=== PATIENT | female | born 1935 | race Hispanic/Latino ===

== ENCOUNTER 2018-05-03 12:11 | Inpatient (IN) | payer MEDICARE ==
--- NOTE | 2018-05-03 12:56 | ED PDOC ---
Arrival/HPI - General Chief Complaint: Weakness/Neurological Deficit Time Seen by Provider: 05/03/18 12:28 Historian: Patient - History of Present Illness Narrative History of Present Illness (Text): 05/03/18 12:49 A 82 year old female, whose past medical history includes recent knee procedure one week ago, presents to the emergency department complaining of black stool starting this morning and "feeling very weak". Patient reports she had surgery to leg last week, and since then has been eating a little and having small bowel movements every day. Patient awoke feeling very weak and had dark bowel movement, which she did not have previously. Patient notes also experiencing dizziness and lightheadedness that worsen when standing or ambulating. Patient ambulates with her walker. She denies any abdominal pain or any other complaints at this time. Also, patient mentions she has no history of internal bleeding. 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 Fish, last visit being 4-6 months ago, for evaluation since having colonoscopy performed years ago, and latest evaluation showed no acute findings. PMD: Dr. Loaiza 05/03/18 14:32 Time/Duration: Prior to Arrival Symptom Onset: Gradual Past Medical History - Provider Review Nursing Documentation Reviewed: Yes - Infectious Disease Hx of Infectious Diseases: None - Tetanus Immunization Tetanus Immunization: Unknown - Cardiac Hx Pacemaker: No - Neurological Hx Paralysis: No - Hematological/Oncological Hx Blood Transfusions: No Hx Blood Transfusion Reaction: No - Musculoskeletal/Rheumatological Hx Musculoskeletal Disorders: Yes - Psychiatric Hx Depression: No Hx Emotional Abuse: No Hx Physical Abuse: No Hx Substance Use: No - Surgical History Hx Orthopedic Surgery: Yes (right knee sx) - Anesthesia Hx Anesthesia Reactions: No Hx Malignant Hyperthermia: No - Suicidal Assessment Feels Threatened In Home Enviroment: No Family/Social History - Physician Review Nursing Documentation Reviewed: Yes Family/Social History: No Known Family HX Smoking Status: Former Smoker Hx Alcohol Use: No Hx Substance Use: No Hx Substance Use Treatment: No Allergies/Home Meds Allergies/Adverse Reactions: Allergies iodine Allergy (Verified 05/03/18 12:38) RASH shellfish derived Allergy (Verified 05/03/18 12:38) RASH Home Medications: Home Meds Medication Instructions Recorded Confirmed Aspirin [Aspirin EC] 1 tab PO DAILY 05/03/18 05/03/18 Review of Systems - Review of Systems Constitutional: Fatigue. absent: Fevers Eyes: absent: Vision Changes Respiratory: absent: SOB Cardiovascular: absent: Chest Pain, JIMÉNEZ Gastrointestinal: Stool Changes (black stool). absent: Abdominal Pain Genitourinary Female: absent: Dysuria Musculoskeletal: Other (right lower extremity swelling). absent: Back Pain Skin: absent: Rash Neurological: Dizziness (and lightheadedness that worsens with standing or when ambulating with her walker.). absent: Focal Weakness Hemo/Lymphatic: absent: Easy Bleeding Psychiatric: absent: Depression Physical Exam - Physical Exam Narrative Physical Exam (Text): Head: Atraumatic. Normocephalic. Eyes: PERRL. EOMI. Conjunctivae are pale. ENT: Mucous membranes are moist and intact. Oropharynx is clear and symmetric. Neck: Supple. Full ROM. No JVD. No lymphadenopathy. Cardiovascular: Regular rate. Regular rhythm. Systolic murmur. Distal pulses intact. Pulmonary/Chest: No evidence of respiratory distress. Clear to auscultation bilaterally. No wheezing, rales or rhonchi. Abdominal: Soft and non-distended. There is no tenderness. No rebound, guarding, or rigidity. No organomegaly. Good bowel sounds. Back: No CVA tenderness. Extremities: Dressing noted to right lower extremity, no streaking pus or drainage. Edema noted to right lower extremity. Able to range at hip, knee and ankle. Ecchmosid noted to right leg extends proximally.. Skin: Skin is pale and diaphoretic. Neurological: Alert, awake, and oriented. Motor and sensory exam intact. Psychiatric: Good eye contact. Normal interaction, affect, and behavior. Rectal: Dark stool, positive guaiac. 05/03/18 16:43 Vital Signs Reviewed: Yes Vital Signs Temp Pulse Resp BP Pulse Ox 05/03/18 16:11 98 F 84 18 106/49 L 05/03/18 15:55 98.3 F 84 18 111/83 05/03/18 15:22 97 H 18 111/81 100 05/03/18 13:24 78 18 119/61 99 05/03/18 12:42 98.2 F 89 18 114/69 100 Temperature: Afebrile Blood Pressure: Normal Pulse: Regular Respiratory Rate: Normal Appearance: Positive for: Well-Appearing, Non-Toxic, Comfortable Pain Distress: None Mental Status: Positive for: Alert and Oriented X 3 Medical Decision Making ED Course and Treatment: 05/03/18 12:53 Impression: 82 year old female with black stool, dizziness, and lightheadedness. Differential Diagnosis included but are not limited to: GI Bleed vs. Anemia. Plan: -- IV Fluids -- Pepcid -- Reassess and disposition Progress Notes: 05/03/18 12:55 Patient is not hypotensive/tachycardic. However symptom of black stool are concerning for possible GI bleeding. Patient will be administered IV Fluids and Pepcid. Rectal exam reveals melena and is guaiac positive. Patient denies acute leg pain, but has had prior recent knee surgery and ecchymosis noted to right lower extremity with edema. Pulses intact. Minimal leg discomfort. NO sign of compartment syndrome on exam. She denies hematemesis. She has been monitored and is not hypotensive or tachycardic. Hgb 6.6. This was compared to last available hgb. Given indication of acute gi bleeding as patient described symptom onset this am and dark stools this am, iv protonix , gi consult obtained. Blood transfusion ordered. I have reviewed indications and risks/benefits of transfusion, consent has been obtained. With serial exams she remains comfortable on stretcher. ICU consultation obtained, as she is cv stable at this time, patient currently cleared by ICU for telemetry admission. Case d/w Dr. Valle, accepts admission to his service, will consult Dr. Rashid for orthopedic evaluation and follow-up of right leg. Patient updated with treatment plan. She has no abdomoinal pain or rever. 05/03/18 17:03 - Lab Interpretations Lab Results: 05/03/18 12:30 05/03/18 12:30 Lab Results 05/03/18 13:22: Urine Color Yellow, Urine Appearance Clear, Urine pH 6.0, Ur Specific [place] 1.015, Urine Protein Negative, Urine Glucose (UA) Negative, Urine Ketones Negative, Urine Blood Negative, Urine Nitrate Negative, Urine Bilirubin Negative, Urine Urobilinogen 0.2, Ur Leukocyte Esterase Small H, Urine RBC Negative, Urine WBC 2 - 5, Ur Epithelial Cells 1 - 3, Urine Bacteria Mod 05/03/18 13:07: POC Glucose (mg/dL) 105 05/03/18 12:30: Blood Type O POSITIVE, Antibody Screen Negative, Crossmatch See Detail, BBK History Checked No verified bt 05/03/18 12:30: Sodium 136, Potassium 3.6, Chloride 103, Carbon Dioxide 24, Anion Gap 13, BUN 52 H, Creatinine 1.0, Est GFR ( Amer) > 60, Est GFR ( Non-Af Amer) 53, Random Glucose 103, Calcium 9.2, Total Bilirubin 0.9, AST 36, ALT 31, Alkaline Phosphatase 46, Lactate Dehydrogenase 540, Total Creatine Kinase 55, Troponin I 0.04 D, Total Protein 6.3, Albumin 3.4, Globulin 2.8, Albumin/Globulin Ratio 1.2 05/03/18 12:30: WBC 13.9 H D, RBC 2.18 L, Hgb 6.6 L*, Hct 19.6 L*, MCV 89.9, MCH 30.3, MCHC 33.7, RDW 14.8 H, Plt Count 331, MPV 8.9, Gran % 73.9 H, Lymph % (Auto) 18.2 L, [place] % (Auto) 7.2 H, Eos % (Auto) 0.4 L, Baso % (Auto) 0.3, Gran # 10.29 H, Lymph # (Auto) 2.5, [place] # (Auto) 1.0 H, Eos # (Auto) 0.1, Baso # ( Auto) 0.04 - RAD Interpretation Radiology Orders: 05/03/18 12:57 CHEST PORTABLE [RAD] Stat Health Educator: Radiologist - EKG Interpretation EKG Interpretation (Text): EKG at 1233 normal sinus rhythm rate of [address] abnormality Interpreted by ED Physician: Yes Type: 12 lead EKG - Medication Orders Current Medication Orders: Discontinued Medications Sodium Chloride (Sodium Chloride 0.9%) 1,000 mls @ 1,000 mls/hr IV .Q1H STA Stop: 05/03/18 13:57 Last Admin: 05/03/18 13:03 Dose: 1,000 mls/hr eMAR Start Stop Document 05/03/18 13:03 GMD (Rec: 05/03/18 13:03 [facility] [id number] Intravenous Solution Start Date 05/03/18 Start Time 13:03 End Date 05/03/18 End time 14:03 Total Infusion Time 60 Pantoprazole Sodium (Protonix Inj) 40 mg IVP ONCE STA Stop: 05/03/18 12:59 Last Admin: 05/03/18 13:03 Dose: 40 mg IVP Administration Document 05/03/18 13:03 GMD (Rec: 05/03/18 13:03 GMD [facility] [id number]) Charges for Administration # of IVP Administrations 1 - Scribe Statement The provider has reviewed the documentation as recorded by the Rejiibeh Mike Provider Scribe Attestation: All medical record entries made by the Scribe were at my direction and personally dictated by me. I have reviewed the chart and agree that the record accurately reflects my personal performance of the history, physical exam, medical decision making, and the department course for this patient. I have also personally directed, reviewed, and agree with the discharge instructions and disposition. Disposition/Present on Arrival - Present on Arrival Any Indicators Present on Arrival: No History of DVT/PE: No History of Uncontrolled Diabetes: No Urinary Catheter: No History of Decub. Ulcer: No History Surgical Site Infection Following: None - Disposition Have Diagnosis and Disposition been Completed?: Yes Diagnosis: GI bleeding, Anemia, Leg edema, right Disposition: HOSPITALIZED Disposition Time: 14:30 Patient Plan: Admission, Telemetry Patient Problems: Current Active Problems Problem Status Onset Anemia Acute GI bleeding Acute Leg edema, right Acute Condition: SERIOUS
[2018-05-03] MEDS ORDERED: Sodium Chloride 0.9% 1,000 ML IV STA (12:58)
[2018-05-03 13:18] LABS: BASO # 0.04 K/mm3 (0.0-2.0); BASO % 0.3 % (0.0-3.0); EOS # 0.1 (0.0-0.7); EOS % 0.4 % (1.5-5.0); GRAN # 10.29 (1.4-6.5); GRAN % 73.9 % (50.0-68.0); LYMPH # 2.5 (1.2-3.4); LYMPH % 18.2 % (22.0-35.0); MEAN CELL VOLUME 89.9 fl (80.0-105.0); MEAN CORPUSCULAR HEMOGLOBIN 30.3 pg (25.0-35.0); MEAN CORPUSCULAR HGB CONC 33.7 g/dl (31.0-37.0); MEAN PLATELET VOLUME 8.9 fl (7.0-11.0); MONO % 7.2 % (1.0-6.0); RBC 2.18 10^6/uL (3.5-6.1); RED CELL DISTRIBUTION WIDTH 14.8 % (11.5-14.5); WHITE BLOOD COUNT 13.9 10^3/ul (4.5-11.0)
[2018-05-03 13:19] LABS: ALB/GLOB RATIO 1.2 (1.1-1.8); ALBUMIN 3.4 g/dL (3.0-4.8); ALT/SGPT 31 U/L (7-56); AST/SGOT 36 U/L (14-36); BLOOD UREA NITROGEN 52 mg/dL (7-21); CALCIUM 9.2 mg/dL (8.4-10.5); GFR AFRICAN-AMERICAN > 60; GFR NON-AFRICAN AMERICAN 53
[2018-05-03 13:20] LABS: HEMOGLOBIN 6.6 g/dL (12.0-16.0)
[2018-05-03 13:31] LABS: URINE BILIRUBIN NEGATIVE (NEGATIVE); URINE BLOOD NEGATIVE (NEGATIVE); URINE GLUCOSE (UA) NEGATIVE (NEGATIVE); URINE LEUKOCYTE ESTERASE SMALL Leu/uL (NEGATIVE); URINE PROTEIN NEGATIVE mg/dL (<30 mg/dL); URINE UROBILINOGEN 0.2 E.U./dL (<1 E.U./dL)
[2018-05-03 13:31] LABS: TROPONIN I 0.04 ng/mL
[2018-05-03 13:34] LABS: URINE APPEARANCE CLEAR (CLEAR); URINE COLOR YELLOW (YELLOW)
[2018-05-03 13:46] LABS: URINE RBC NEGATIVE /hpf (0-2)
[2018-05-03 13:47] LABS: URINE BACTERIA MOD (NEG)
--- NOTE | 2018-05-03 14:01 | RAD ---
Date of service: 05/03/2018 HISTORY: weakness COMPARISON: 06/19/2014. FINDINGS: LUNGS: The lungs are well inflated and clear. There is calcified subcentimeter nodule in the right lung base. PLEURA: No significant pleural effusion identified, no pneumothorax apparent. CARDIOVASCULAR: Normal. OSSEOUS STRUCTURES: No significant abnormalities. VISUALIZED UPPER ABDOMEN: Normal. OTHER FINDINGS: None. IMPRESSION: No active pulmonary disease.
--- NOTE | 2018-05-03 15:13 | CT ---
Date of service: 05/03/2018 PROCEDURE: CT of the right hip without contrast HISTORY: eval for hematoma of hip/thigh/knee COMPARISON: TECHNIQUE: Radiation dose: Total exam DLP = 363 mGy-cm. This CT exam was performed using one or more of the following dose reduction techniques: Automated exposure control, adjustment of the mA and/or kV according to patient size, and/or use of iterative reconstruction technique. The study extended from the hip through the knee FINDINGS: There is no evidence of a hematoma. There is subcutaneous edema posteriorly around the knee. There has been recent surgery. Surgical clips are seen anteriorly as well as a small effusion and subcutaneous fluid collection. There is a partial knee replacement on the lateral side. IMPRESSION: No evidence of hematoma
--- NOTE | 2018-05-03 15:21 | CARD ---
APPROVED REPORT Date of service: 05/03/2018 EKG Measurement Heart [id number] <Conclusion> Normal sinus rhythm ST abnormality, possible digitalis effect Abnormal ECG
[2018-05-03 16:03] LABS: INR 1.15; PARTIAL THROMBOPLASTIN TIME 24.9 Seconds (25.1-36.5); PROTHROMBIN TIME 13.1 SECONDS (9.4-12.5)
--- NOTE | 2018-05-03 16:08 | CP.PCM.CON ---
History of Present Illness - History of Present Illness History of Present Illness: 82f that we are asked to see for critical care evaluation of acute blood anemia. Irma is overall very healthy on no home meds up until last week when she had right knee surgery at [facility]. It was an ambulatory proecure. Since then she decided to take ASA 325mg PO daily. Her recovery was concerning for bruising and leg swelling however her f/u appt isnt until next week. She overall felt well until this AM when she had a black stool and shortly after felt weak. This alerted her to come to the ED. Of note, she had a colonscopy about 8 years ago (GI Dr. Fish) which was normal. In the Ed she was normotensive with a BP of 119/61 HR 80. Labs remarkable for HB 6.6 Review of Systems - Constitutional Constitutional: Fatigue, Weakness. absent: Chills, Fever, Headache - EENT Eyes: absent: Blurred Vision, Change in Vision Ears: absent: As Per HPI, Decreased Hearing, Ear Discharge, Ear Pain, Tinnitus, Abnormal Hearing, Disequilibrium, Dizziness, Other Nose/Mouth/Throat: absent: As Per HPI, Epistaxis, Nasal Congestion, Nasal Discharge, Nasal Obstruction, Nasal Trauma, Nose Pain, Post Nasal Drip, Sinus Pain, Sinus Pressure, Bleeding Gums, Change in Voice, Dental Pain, Dry Mouth, Dysphagia, Halitosis, Hoarsness, Lip Swelling, Mouth Lesions, Mouth Pain, Odynophagia, Sore Throat, Throat Swelling, Tongue Swelling, Facial Pain, Neck Pain, Neck Mass, Other - Cardiovascular Cardiovascular: absent: As Per HPI, Acrocyanosis, Chest Pain, Chest Pain at Rest , Chest Pain with Activity, Claudication, Diaphoresis, Dyspnea, Dyspnea on Exertion, Edema, Irregular Heart Rhythm, Pain Radiating to Arm/Neck/Jaw, Leg Edema, Leg Ulcers, Lightheadedness, Orthopnea, Palpitations, Paroxysmal Nocturnal Dyspnea, Pedal Edema, Radiating Pain, Rapid Heart Rate, Slow Heart Rate, Syncope, Other - Respiratory Respiratory: absent: As Per HPI, Cough, Dyspnea, Hemoptysis, Dyspnea on Exertion , Wheezing, Snoring, Stridor, Pain on Inspiration, Chest Congestion, Excessive Mucous Production, Change in Mucous Color, Pain with Coughing, Other - Gastrointestinal Gastrointestinal: Change in Stool Character, Melena. absent: Coffee Ground Emesis, Constipation, Hematemesis, Loose Stools, Nausea, Vomiting - Genitourinary Genitourinary: absent: As Per HPI, Change in Urinary Stream, Difficulty Urinating, Dysuria, Flank Pain, Hematuria, Pyuria, Nocturia, Urinary Incontinence, Urinary Frequency, Urinary Hesitance, Urinary Urgency, Voiding Freq/Small Amts, Freq UTI, Hx Renal/Bladder Calculi, Hx /Renal Surgery, Bladder Distension, Other - Musculoskeletal Musculoskeletal: Joint Swelling, Limited Range of Motion. absent: Back Pain, Numbness - Neurological Neurological: Focal Weakness, Other. absent: As Per HPI, Abnormal Gait, Abnormal Hearing, Abnormal Movements, Abnormal Speech, Behavioral Changes, Burning Sensations, Confusion, Convulsions, Disequilibrium, Dizziness, Numbness , Frequent Falls, Headaches, Lack of Coordination, Loss of Vision, Memory Loss, Paresthesias, Radicular Pain, Restless Legs, Sensory Deficit, Syncope, Tingling , Tremor, Vertigo, Other Visual Disturbances - Psychiatric Psychiatric: absent: As Per HPI, Abnormal Sleep Pattern, Anhedonia, Anxiety, Auditory Hallucinations, Behavioral Changes, Change in Appetite, Change in Libido, Confusion, Depression, Difficulty Concentrating, Hallucinations, Homicidal Ideation, Hopelessness, Irritability, Memory Loss, Mood Swings, Panic Attacks, Paranoia, Suicidal Ideation, Visual Hallucinations, Tactile Hallucinations, Other Past Patient History - Infectious Disease Hx of Infectious Diseases: None - Tetanus Immunizations Tetanus Immunization: Unknown - Past Social History Smoking Status: Never Smoked Chewing Tobacco Use: No Cigar Use: No Alcohol: None Drugs: Denies Home Situation {Lives}: With Family - CARDIAC Hx Cardiac Disorders: No Hx Pacemaker: No - PULMONARY Hx Respiratory Disorders: No - NEUROLOGICAL Hx Neurological Disorder: No Hx Paralysis: No - HEMATOLOGICAL/ONCOLOGICAL Hx Blood Transfusions: No Hx Blood Transfusion Reaction: No - MUSCULOSKELETAL/RHEUMATOLOGICAL Hx Musculoskeletal Disorders: Yes - GASTROINTESTINAL Hx Gastrointestinal Disorders: Yes Hx Diarrhea: Yes (sees dr fish) - PSYCHIATRIC Hx Depression: No Hx Emotional Abuse: No Hx Physical Abuse: No Hx Substance Use: No - SURGICAL HISTORY Hx Orthopedic Surgery: Yes (right knee sx) - ANESTHESIA Hx Anesthesia Reactions: No Hx Malignant Hyperthermia: No Meds Allergies/Adverse Reactions: Allergies Allergy/AdvReac Type Severity Reaction Status Date / Time iodine Allergy RASH Verified 05/03/18 12:38 shellfish derived Allergy RASH Verified 05/03/18 12:38 Physical Exam - Constitutional Appears: Non-toxic, No Acute Distress - Head Exam Head Exam: NORMAL INSPECTION - Eye Exam Eye Exam: EOMI, Normal appearance - Neck Exam Neck exam: Positive for: Full Rom - Respiratory Exam Respiratory Exam: Clear to Auscultation Bilateral, NORMAL BREATHING PATTERN - Cardiovascular Exam Cardiovascular Exam: REGULAR RHYTHM, RRR, +S1, +S2 - GI/Abdominal Exam GI & Abdominal Exam: Normal Bowel Sounds, Soft. absent: Organomegaly, Pulsatile Mass, Rebound, Tenderness - Extremities Exam Additional comments: right leg wrapped/immbolie swollen up to thiigh +ecchymosis/deep bruising - Psychiatric Exam Psychiatric exam: Normal Affect, Normal Mood Results - Vital Signs Recent Vital Signs: Last Vital Signs Temp 98.2 F 05/03/18 12:42 Pulse 97 H 05/03/18 15:22 Resp 18 05/03/18 15:22 BP 111/81 05/03/18 15:22 Pulse Ox 100 05/03/18 15:22 - Labs Result Diagrams: 05/03/18 12:30 05/03/18 12:30 Labs: Laboratory Results - last 24 hr 05/03/18 13:40 Blood Type Confirm O POSITIVE Assessment & Plan - Assessment and Plan (Free Text) Assessment: 1. Acute blood loss anemia 2. +stool guiac 3. right leg hematoma s/p recent knee surgery Irma is an 82F who recently had a right knee surgery 1 week ago and presents to the ED with fatigue, dark stools found to have a HB 6.6. I suspect the bleeding may be exacerbated by the fact that she has been taking ASA 325mg daily since her procedure. Looking at her leg, the ecchymosis and swelling are suspicious for bleeding/hematoma which may have contributed to her low hb. This may have been exacerbated by an upper gi bleed/ ulcer caused by ASA which is why she is having dark stools instead of bright red. Elevated BUN in the setting of a normal CR further suggests this. She is hemodynamically stable althought I was unable to check her orthostatics given her right knee immobilization. She is not tachycardic and has no hx of HTN which suggest the bleed is slower. She does not require ICU level of care at this time however if she becomes hypontesive, tachycardic or shows signs of cont bleeding please re-call ICU. I would recommened: 2 units PRBC STOP ASA Consult Ortho to eval leg Imaging (XR or CTA) of right leg NO medical DVT ppx but she is high risk so ensure SCDs Repeat CBC after transfusion Wallace Richter MD ICU Attending
[2018-05-03] MEDS ORDERED: Pneumococcal 23-Valent Vaccine IM ONE (23:32)
--- NOTE | 2018-05-04 06:10 | CON ---
Copied To: Ray Fish DO Attending MD: Ray Fish DO DATE: 05/03/2018 HISTORY OF PRESENT ILLNESS: I saw Ms. Phelps in the ER. 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 The consult was called for severe anemia by the ER physician. Ms. Phelps has a history of nonspecific colitis usually amounting to 3 or 4 flares per year. No ulcerations or severe GI bleeding noted in the past. The patient USUALLY presents with 2 to 3 weeks of diarrhea which resolves with prednisone taper starting roughly about 15 to 20 mg to off. She was last seen in the office about a month and a half ago for the same problem. The diarrhea and chronic colitis episode resolved in short order. She has not presented with any abdominal pain, rectal bleeding, nausea, vomiting, or hematemesis recently. Patient relates that she had an orthopedic procedure recently for "bone on bone". This was performed by Dr. Rosen, orthopedic surgeon out of [facility]. Patient noted over the past couple of days, increasing girth of her calf and anterior aspect of her foot. She also noted significant ecchymosis extending from the area of the surgery all the way down her leg and calf. The calf on the right side is tender to palpation and swollen. When asked about if she has any bleeding, patient denied any bright red blood per rectum; however, on discussion with Dr. Bains, ER physician, it was noted that rectal exam indicated small amount of dark stool. This bowel movement issue was denied by the patient, who indicated her bowel movements are within normal limits. PHYSICAL EXAMINATION: VITAL SIGNS: I reviewed this patient's vital signs. HEENT: Noncontributory. LUNGS: Decreased breath sounds at the bases. HEART: Regular rhythm. ABDOMEN: Soft, no tenderness elicited. EXTREMITIES: Extremities were examined as well. The left leg is within her normal limits. The right leg shows underneath her bandages significant ecchymosis extending from the knee, all the way down the calf anteriorly and posteriorly. There is ecchymoses noted in the superior aspect at the top of her right foot, going into her toes. She has sensation in the toes on the right side. LABORATORY DATA: Patient's laboratory data indicate a WBC count 13 with an H and H of 6.6/19, platelet count 331. Chemistry indicates lytes within normal limits except for the BUN/creatinine ratio of 32/1. Patient's chest x-ray was noncontributory. ASSESSMENT: Patient is an 82-year-old white female with history of nonspecific colitis, admitted with severe anemia. Based on history and physical exam, it appears that the most likely etiology for the blood loss was postoperative bleeding after her orthopedic procedure. Noted that there is significant ecchymosis in the right leg extending from the knee all the way down to the dorsal aspect of the foot on the right side. One has to be cognizant of possible compartment syndrome and possibility of multiple scans, ultrasounds, CT, etc., were discussed with the emergency room physician. She will be seen by Dr. Baltazar, orthopedist, here in [facility]. PLAN: At this point in time, I am not planning on any endoscopic procedures in the next day or two; however, if her clinical status warrants, I may end up scheduling patient for an endoscopic procedure, on Monday . Ray Fish DO, PhD UMER
[2018-05-04 06:39] LABS: MEAN CELL VOLUME 89.3 fl (80.0-105.0); MEAN CORPUSCULAR HEMOGLOBIN 30.3 pg (25.0-35.0); MEAN CORPUSCULAR HGB CONC 33.9 g/dl (31.0-37.0); MEAN PLATELET VOLUME 8.7 fl (7.0-11.0); RBC 2.71 10^6/uL (3.5-6.1); RED CELL DISTRIBUTION WIDTH 15.7 % (11.5-14.5)
[2018-05-04 07:19] LABS: HEMOGLOBIN 8.2 g/dL (12.0-16.0)
[2018-05-04 07:23] LABS: ALB/GLOB RATIO 1.1 (1.1-1.8); ALBUMIN 2.7 g/dL (3.0-4.8); ALT/SGPT 33 U/L (7-56); AST/SGOT 42 U/L (14-36); BLOOD UREA NITROGEN 31 mg/dL (7-21); GFR AFRICAN-AMERICAN > 60; GFR NON-AFRICAN AMERICAN > 60
--- NOTE | 2018-05-04 07:36 | CON ---
Copied To: Pritesh Baltazar DO Attending MD: Pritesh Baltazar DO DATE: 05/03/2018 ORTHOPEDIC CONSULTATION The patient is an 82-year-old female who underwent a lateral unicondylar knee replacement on the right knee approximately a week ago at [facility], did well, the wound is dry. I was called to see the patient because of anemia. I could say that the anemia is definitely not from the right knee. There is a very minimal ecchymosis. No undue swelling. I examined the dressing, took it down, it is dry; swelling is subsiding, and I put a new dressing on and encouraged her to do range of motion of the knee and to sleep with the knee extended. She is going to see next week and hopefully should be out of hospital by then to go there for the suture removal or an examination anyway. I put her under the sterile dressing today, but her right total knee is doing well, and its her lateral unicondylar knee and has no undue complaint of pain. No signs of infection, and no signs of hematoma of the thigh or the knee. Pritesh Baltazar DO MTDD
[2018-05-04 09:40] LABS: IRON 53 ug/dL (45-180)
[2018-05-04] MEDS: Potassium Chloride 20 mEq ER Tab PO SCH (09:43)
--- NOTE | 2018-05-04 09:45 | CP.PCM.HP ---
History of Present Illness - History of Present Illness History of Present Illness: PGY-[address] Valle Admission: Acute anemia due to blood loss Ms Phelps, 82F, with PMHx of recent knee procedure one week ago, c/o black stool starting this morning and "feeling very weak". Patient reports she had surgery to leg last week, and since then has been eating a little and having small bowel movements every day. Patient awoke feeling very weak and had dark bowel movement, which she did not have previously. Patient notes also experiencing dizziness and lightheadedness that worsen when standing or ambulating. Patient ambulates with her walker after surgery. She led an active lifestyle exercising either at home or senior center every day prior to surgery Her last colonoscopy 8 years ago, normal. 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 Denies acute leg pain, pulses intact, no palor or paresthesia (+) decrease appetite, (+) weak, dizzy (+) dark BM Denies Abdominal pain/hematemisus she has no history of internal bleeding. ED course: normotensive with a BP of 119/61 HR 80. Labs remarkable for HB 6.6. baseline 14. Rectal exam reveals melena and is guaiac positive. (+) ecchymosis noted to right lower extremity with edema. Pulses intact. Minimal leg discomfort. NO sign of compartment syndrome on exam. She was not hypotensive or tachycardic. transfused __2_u pRBC. IV protonix. CT: Partial knee replacement on R lateral PMD: Dr. Loaiza GI: Dr Cary PMH: Denies PSH: Recent [facility]uc [facility] FH: NS SH: Former smoker, denies drink/drug All: iodine - rash/ shellfish - rash Med: Not on any prescribed med. Pt decided on her own to take ASA 325mg PO daily after knee replacmenet Present on Admission - Present on Admission Any Indicators Present on Admission: No Past Patient History - Infectious Disease Hx of Infectious Diseases: None - Tetanus Immunizations Tetanus Immunization: Unknown - Past Social History Smoking Status: Never Smoked - CARDIAC Hx Cardiac Disorders: No Hx Pacemaker: No - PULMONARY Hx Respiratory Disorders: Yes (USED TO SMOKE IN HER 20'S) - NEUROLOGICAL Hx Neurological Disorder: No - HEENT Hx HEENT Problems: Yes (RINGING OF THE EARS.) - RENAL Hx Chronic Kidney Disease: No - ENDOCRINE/METABOLIC Hx Endocrine Disorders: No - HEMATOLOGICAL/ONCOLOGICAL Hx Blood Disorders: Yes Hx Anemia: Yes (BLOOD TRANSFUSION 05-03-18) Hx Cancer: Yes (SKIN CA TO LEFT LOWER LEG.) - INTEGUMENTARY Hx Dermatological Problems: Yes (SKIN CA TO LEFT LOWER LEG.) - MUSCULOSKELETAL/RHEUMATOLOGICAL Hx Musculoskeletal Disorders: Yes (RIGHT KNEE SX-PARTIAL KNEE REPLACEMENT) Hx Falls: Yes - GASTROINTESTINAL Hx Gastrointestinal Disorders: Yes (GI BLEED 05-03-18) - GENITOURINARY/GYNECOLOGICAL Hx Genitourinary Disorders: No - PSYCHIATRIC Hx Psychophysiologic Disorder: No Hx Depression: No Hx Emotional Abuse: No Hx Physical Abuse: No Hx Substance Use: No - SURGICAL HISTORY Hx Surgeries: Yes (EYE SX) Hx Orthopedic Surgery: Yes (right knee sx) - ANESTHESIA Hx Anesthesia Reactions: No Hx Malignant Hyperthermia: No Meds Allergies/Adverse Reactions: Allergies Allergy/AdvReac Type Severity Reaction Status Date / Time carrot Allergy SHORTNESS Verified 05/03/18 23:01 OF BREATH iodine Allergy RASH Verified 05/03/18 23:01 shellfish derived Allergy RASH Verified 05/03/18 23:01 Physical Exam - Constitutional Appears: No Acute Distress - Head Exam Head Exam: ATRAUMATIC, NORMAL INSPECTION, NORMOCEPHALIC - Eye Exam Eye Exam: EOMI, Normal appearance, PERRL. absent: Scleral icterus Pupil Exam: NORMAL ACCOMODATION - ENT Exam ENT Exam: Mucous Membranes Moist - Neck Exam Additional comments: supple - Respiratory Exam Respiratory Exam: Clear to Auscultation Bilateral, NORMAL BREATHING PATTERN. absent: Rales, Rhonchi, Wheezes - Cardiovascular Exam Cardiovascular Exam: REGULAR RHYTHM, +S1, +S2, Systolic Murmur - GI/Abdominal Exam GI & Abdominal Exam: Normal Bowel Sounds, Soft. absent: Distended, Rigid, Tenderness - Extremities Exam Extremities exam: Positive for: normal capillary refill, pedal edema (R), pedal pulses present. Negative for: calf tenderness, tenderness Additional comments: R surgical site and sutures d/c/i. eccymosis knee, calf, and foot - Back Exam Back exam: absent: CVA tenderness (L), CVA tenderness (R), vertebral tenderness - Neurological Exam Neurological exam: Alert, Oriented x3 - Psychiatric Exam Psychiatric exam: Normal Affect, Normal Mood - Skin Skin Exam: Dry, Warm Results - Vital Signs Recent Vital Signs: Last Vital Signs Temp 98 F 05/04/18 06:00 Pulse 69 05/04/18 06:00 Resp 18 05/04/18 06:00 BP 103/52 L 05/04/18 06:00 Pulse Ox 97 05/04/18 06:00 - Labs Result Diagrams: 05/04/18 05:45 05/04/18 05:45 Labs: Laboratory Results - last 24 hr 05/03/18 05/03/18 05/04/18 13:40 15:48 05:45 WBC 10.0 D RBC 2.71 L Hgb 8.2 L Hct 24.2 L MCV 89.3 MCH 30.3 MCHC 33.9 RDW 15.7 H Plt Count 222 MPV 8.7 PT 13.1 H INR 1.15 APTT 24.9 L Sodium Potassium Chloride Carbon Dioxide Anion Gap BUN Creatinine Est GFR ( Amer) Est GFR (Non-Af Amer) Random Glucose Calcium Iron Total Bilirubin AST ALT Alkaline Phosphatase Total Protein Albumin Globulin Albumin/Globulin Ratio Blood Type Confirm O POSITIVE 05/04/18 05/04/18 05:45 06:30 WBC RBC Hgb Hct MCV MCH MCHC RDW Plt Count MPV PT INR APTT Sodium 138 Potassium 3.5 L Chloride 109 H Carbon Dioxide 25 Anion Gap 7 L BUN 31 H Creatinine 0.8 Est GFR ( Amer) > 60 Est GFR (Non-Af Amer) > 60 Random Glucose 86 Calcium 8.0 L Iron 53 Total Bilirubin 1.1 AST 42 H ALT 33 Alkaline Phosphatase 40 Total Protein 5.3 L Albumin 2.7 L Globulin 2.6 Albumin/Globulin Ratio 1.1 Blood Type Confirm Assessment & Plan - Assessment and Plan (Free Text) Plan: Ms Phelps, 82F, with PMHx of recent R knee meniscus replacement one week ago, c /o melena on ASA 325 and "feeling very weak". Diffuse Ecchymosis also noted distal to surgical site from knee to dorsum of foot. Last colonoscopy 8 years ago, normal. Rectal exam reveals melena and is guaiac positive. Acute blood loss - evidenced by normal creatinine/elevated BUN. Hb 6.6 on admission, s/p 2u RBC. - 2 possible sources: upper GI vs ecchymosis post surgery Symptomatic anemia, dizziness - likely due to acute blood loss. - improving. Continue to trend H/H, HR, BP. GI bleed, likely upper - Per GI, if bleeding persists during the weekend, will do EGD on Monday. Heart health diet. Protonix IV daily. Ecchymosis, R leg, Post-surgery - likely from antiplatelet effect from ASA. Pending CT leg to rule out ecchymosis. Ortho on board Had ruled out compartment syndrome - No pain/pallor/paresthesia. Capillary refill <2 min DVT prophylaxis - SCD on L leg only. OOB to chair with assist. PT/OT s/r/d/w Dr Valle
[2018-05-04 09:50] LABS: % IRON SATURATION 19 % (20-55); TOTAL IRON BINDING CAPACITY 286 ug/dL (265-497)
--- NOTE | 2018-05-04 10:03 | PN ---
Copied To: Ray Fish DO Attending MD: Ray Fish DO DATE: 05/04/2018 SUBJECTIVE: I saw Ms. Phelps this morning. She is an 82-year-old white female, known to the consultants, admitted yesterday due to weakness and anemia. Note that patient recently had a an orthopedic procedure with subsequent finding of swelling of the right calf and diffuse ecchymoses extending from the knee all the way down to the dorsal aspect of the foot on the right side. She denies any hematemesis, bright red blood per rectum, abdominal pain, nausea or vomiting. Note that she has been on aspirin recently. Patient was feeling weak at home and that is the reason for ER evaluation. She did note some dizziness, some lightheadedness that worsened with the change of position. At bedside this morning, the patient feels comfortable with no abdominal pain. Currently, there have been no melanotic bowel movements overnight. She was evaluated by Dr. Baltazar yesterday. The CT was performed extending from the right hip down to the knee. PHYSICAL EXAMINATION: VITAL SIGNS: I reviewed this patient's vital signs. HEENT: Noncontributory. LUNGS: Decreased breath sounds, basilar. HEART: Regular rhythm. ABDOMEN: Soft. No tenderness elicited. EXTREMITIES: Foot shows ecchymoses extending from the knee all the way down to the dorsal aspect of the foot on the right side including the toes. Patient's calf is very tender. Leg is swollen on the right side. DIAGNOSTIC DATA: Lower extremity CT was ordered; however, the scan images extends from the hip to the knee only. This was read as no evidence of hematoma. Note that the area of interest is actually below the knee to the dorsal aspect of the foot. LABORATORY DATA: Reviewed yesterday, my note. Note that INR is 1.15. Chemistry was also reviewed noting an elevated BUN of 52. Creatinine yesterday was 1. Labs are pending today. Today, she has received three units of packed cells. Patient does not appear to be actively bleeding. OVERALL ASSESSMENT: This is an 82-year-old white female with a past medical history of nonspecific colitis, admitted for dizziness, weakness resulting from anemia. Note that the anemia etiology may be multifactorial. Major factor 1 is recent orthopedic procedure associated with bleeding in the area of the knee extending down into the calf area. Patient's leg is swollen. She may have a partial compartment syndrome, possibly resulting from a hematoma in the area of the calf. Note that there was no change in her calf exam on the right side relative to yesterday. It is still extremely tender all way down to the Achilles. Patient obviously needs a new CT scan to evaluate the lower part of the leg, one might also consider an ultrasound as well. Another etiology may include upper GI bleed secondary to aspirin. The patient is scheduled for an upper endoscopy and a colonoscopy for Monday depending on how her clinical status goes over the weekend. I think right now her main issue is bleeding into the lower part of the right leg. This will be clarified by further imaging studies and physical exam. I ordered pantoprazole yesterday. Although patient has no abdominal pain, no nausea or vomiting, a 2 g sodium diet was ordered yesterday. Patient will be evaluated on the weekend and decision will be made on monday morning if she needs an endoscopic procedure at all. Further clarification of the leg issue will be in computer by that time point. Ray Fish DO, PhD [facility]
[2018-05-04] MEDS: Multivitamin Therapeutic Tab PO SCH (10:56)
--- NOTE | 2018-05-04 12:14 | CT ---
Date of service: 05/04/2018 PROCEDURE: CT of the right lower extremity without contrast HISTORY: KNEE, LEG, Foot. (Bruises extend beyond knee) COMPARISON: TECHNIQUE: Radiation dose: Total exam DLP = 322 mGy-cm. This CT exam was performed using one or more of the following dose reduction techniques: Automated exposure control, adjustment of the mA and/or kV according to patient size, and/or use of iterative reconstruction technique. FINDINGS: There is no evidence of a soft tissue hematoma. There is minimal subcutaneous edema near the operative site. There is a partial knee replacement of the lateral compartment. There is subcutaneous edema around the ankle. There is a fluid collection beneath the surgical clips. This measures 11 mm AP x 29 mm wide IMPRESSION: No evidence of hematoma
[2018-05-05 06:59] LABS: HEMOGLOBIN 8.5 g/dL (12.0-16.0); MEAN CELL VOLUME 91.1 fl (80.0-105.0); MEAN CORPUSCULAR HEMOGLOBIN 30.1 pg (25.0-35.0); MEAN CORPUSCULAR HGB CONC 33.1 g/dl (31.0-37.0); MEAN PLATELET VOLUME 8.5 fl (7.0-11.0); RBC 2.82 10^6/uL (3.5-6.1); RED CELL DISTRIBUTION WIDTH 16.7 % (11.5-14.5); WHITE BLOOD COUNT 12.3 10^3/ul (4.5-11.0)
[2018-05-05 07:38] LABS: ALBUMIN 2.8 g/dL (3.0-4.8); ALT/SGPT 31 U/L (7-56); AST/SGOT 28 U/L (14-36); BLOOD UREA NITROGEN 20 mg/dL (7-21); CALCIUM 8.3 mg/dL (8.4-10.5); GFR AFRICAN-AMERICAN > 60; GFR NON-AFRICAN AMERICAN > 60
[2018-05-05] MEDS: Potassium Chloride 20 mEq ER Tab PO SCH (08:27)
[2018-05-05] MEDS: Multivitamin Therapeutic Tab PO SCH (10:24)
--- NOTE | 2018-05-05 13:59 | CARD ---
APPROVED REPORT Date of service: 05/05/2018 EXAM: Two-dimensional and M-mode echocardiogram with Doppler and color Doppler. INDICATION Murmur 2D DIMENSIONS Left Atrium (2D)4.0 (1.6-4.0cm)IVSd1.1 (0.7-1.1cm) LVDd3.6 (3.9-5.9cm)PWd1.2 (0.7-1.1cm) LVDs2.3 (2.5-4.0cm)FS (%) 35.6 % LVEF (%)66.0 (>50%) M-Mode DIMENSIONS Aortic Root2.90 (2.2-3.7cm)Aortic Cusp Exc.1.50 (1.5-2.0cm) Aortic Valve AoV Peak Kmnxttcu627.0cm/sAoV VTI52.5cmAO Peak GR.25mmHg LVOT Peak Abfrakrr538.0cm/sLVOT VTI40.60cmAO Mean GR.14mmHg Mitral Valve MV E Tccczcbp603.0cm/sMV A Babdpacx894.0cm/sMV ZFC66vn E/A ratio1.0MVA (PHT)2.22cm2 TDI Lateral E' Peak V11.80cm/sMedial E' Peak V6.14cm/sE/Lateral E'9.8 E/Medial E'18.9 Pulmonary Valve PV Peak Jeausybk71.1cm/sPV Peak Grad.2mmHg Tricuspid Valve TR Peak Cccivvtp526vn/sRAP TCIFJZYH32geXsJA Peak Gr.65mmHg [id number] LEFT VENTRICLE The left ventricle is normal size. There is mild concentric left ventricular hypertrophy. The left ventricular function is normal. The left ventricular ejection fraction is within the normal range. There is normal LV segmental wall motion. Transmitral Doppler flow pattern is Grade I-abnormal relaxation pattern. RIGHT VENTRICLE The right ventricle is normal size. There is normal right ventricular wall thickness. The right ventricular systolic function is normal. ATRIA The left atrium is mildly dilated. The right atrium is mildly dilated. AORTIC VALVE The aortic valve is severely thickened. No aortic regurgitation is present. There is trace valvular aortic stenosis. MITRAL VALVE The mitral valve is mildly thickened. Mitral regurgitation is moderate to severe. TRICUSPID VALVE The tricuspid valve is normal in structure. There is severe tricuspid regurgitation. There is severe pulmonary hypertension. PULMONIC VALVE The pulmonary valve is normal in structure. There is no pulmonic valvular regurgitation. GREAT VESSELS The aortic root is normal in size. The IVC collapses <50% with inspiration. PERICARDIAL EFFUSION There is a trace loculated anterior pericardial effusion. <Conclusion> The left ventricle is normal size. There is mild concentric left ventricular hypertrophy. The left ventricular function is normal. The left ventricular ejection fraction is within the normal range. There is normal LV segmental wall motion. Transmitral Doppler flow pattern is Grade I-abnormal relaxation pattern. Mitral regurgitation is moderate to severe. There is severe tricuspid regurgitation. There is severe pulmonary hypertension.
--- NOTE | 2018-05-05 22:32 | PN ---
Copied To: Alvina Raymundo MD Attending MD: Alvina Raymundo MD DATE: 05/05/2018 HISTORY OF PRESENT ILLNESS Ms. Phelps is 82-year-old female admitted to the hospital with black-colored stools and feeling weak. Hemoglobin was 6 gm/dL. She had recent knee procedure a week ago, who felt very weak and dizzy, received several units of blood transfusion during this hospitalization. She had colonoscopy few years ago. Denies any pain. No more dark stools overnight. Less fatigue, improved. PAST MEDICAL HISTORY: Osteoarthritis. PAST SURGICAL HISTORY: Right knee surgery. FAMILY HISTORY: Noncontributory. PERSONAL HISTORY: Former smoker. No history of alcohol abuse. SOCIAL HISTORY: She lives at home with . ALLERGIES: IODINE, SHELLFISH. HOME MEDICATIONS: Aspirin 1 tablet daily. REVIEW OF SYSTEMS: As per HPI. Rest of 12-point review of systems reviewed negative. PHYSICAL EXAMINATION: GENERAL: Comfortable in chair, in no acute distress. VITAL SIGNS: Temperature 98, heart rate 84 per minute, respiratory rate 18 per minute, blood pressure 106/49, pulse ox is 100% on room air. HEENT: Pallor positive. NECK: No lymphadenopathy. CHEST: Air entry present and equal bilaterally. No added sounds. CARDIOVASCULAR: S1, S2 normal. No murmur. No gallop. ABDOMEN: Soft, nontender. No hepatosplenomegaly. EXTREMITIES: No edema. SKIN: No petechiae. No rash. Pallor positive. SIDE LASTER STAPLE: Alert and oriented x3. No focal, sensory, motor deficit. LABORATORY DATA: White count 13.9. Hemoglobin on admission 6.6, current hemoglobin 8.5. Sodium 140, potassium 4.4, BUN 20, creatinine 0.8. Iron 53, iron saturation 19. ASSESSMENT AND PLAN: Severe anemia, gastrointestinal bleed, recent knee surgery. PLAN: Hemoglobin is stable at 8.5. Repeat iron studies ordered. Repeat iron studies were done right after blood transfusion, which might show high iron due to blood transfusion. CEA ordered. She is scheduled for colonoscopy, endoscopy on 05/07/2018. Currently on Protonix 40 mg IV daily. We will continue that, K-Dur 20 mEq daily. Evaluated by Dr. Fish, notes reviewed.. We will order a CT abdomen and pelvis with p.o. contrast to rule out any mass lesion. Alvina Raymundo MD [facility] # [id number]
[2018-05-06] MEDS: Potassium Chloride 20 mEq ER Tab PO SCH (07:44)
[2018-05-06 08:02] LABS: HEMOGLOBIN 8.8 g/dL (12.0-16.0); MEAN CELL VOLUME 93.1 fl (80.0-105.0); MEAN CORPUSCULAR HEMOGLOBIN 30.6 pg (25.0-35.0); MEAN CORPUSCULAR HGB CONC 32.8 g/dl (31.0-37.0); MEAN PLATELET VOLUME 8.6 fl (7.0-11.0); RBC 2.88 10^6/uL (3.5-6.1); RED CELL DISTRIBUTION WIDTH 17.3 % (11.5-14.5); WHITE BLOOD COUNT 12.6 10^3/ul (4.5-11.0)
[2018-05-06 08:03] LABS: BLOOD UREA NITROGEN 19 mg/dL (7-21); CALCIUM 8.4 mg/dL (8.4-10.5); GFR AFRICAN-AMERICAN > 60; GFR NON-AFRICAN AMERICAN > 60
[2018-05-06 08:10] LABS: IRON 30 ug/dL (45-180)
[2018-05-06 08:20] LABS: % IRON SATURATION 11 % (20-55); TOTAL IRON BINDING CAPACITY 266 ug/dL (265-497)
[2018-05-06] MEDS: Multivitamin Therapeutic Tab PO SCH (10:27)
--- NOTE | 2018-05-06 11:22 | PN ---
Copied To: Ray Fish DO Attending MD: Ray Fish DO DATE: 05/06/2018 SUBJECTIVE: I saw Ms. Phelps this morning. She is an 82-year-old white female, known to the consultants with past medical history of meningioma, nonspecific colitis, admitted with complaints of weakness after an orthopedic procedure several days prior. The patient noted melanotic-type stool after initiation of aspirin after the ortho procedure. Since the patient has been in the hospital, the patient had no melanotic bowel movements and she denies any hematemesis, rectal bleeding or abdominal pain. On initial evaluation in the Emergency Room, the right leg was severely ecchymotic, extending from the knee all the way down to the toes. This has cleared somewhat. The swelling of the leg has also diminished to some extent also. She has been undergoing physical therapy. The pain in leg is less than on day of admission. Also, she has been eating meals with no difficulty. PHYSICAL EXAMINATION: VITAL SIGNS: I reviewed this patient's vital signs. HEENT: Noncontributory. LUNGS: Decreased breath sounds, basilar. HEART: Regular rhythm. ABDOMEN: Soft. No tenderness elicited. EXTREMITIES: I examined her right extremity from the knee to the foot. Note that the swelling is less; however, the calf is rod mill tender, but less than on day of admission. Again, ecchymoses have cleared somewhat, but are still present extending from the knee all the way down to the dorsal aspect of the right foot. She has sensation in her right foot and toes. LABORATORY DATA: Evaluation of laboratory data indicate current H and H of 8.5/25 after two units of blood. White count is still in the range of 12,000. Platelet count 263. INR within normal limits. This was on 05/03/2018. Chemistry from yesterday which is noncontributory. OVERALL ASSESSMENT: This is an 82-year-old white female with history of nonspecific colitis, which has been controlled. She was admitted due to weakness secondary to anemia experienced after an orthopedic procedure. Clinically it appears that the anemia is probably multifactorial, involving bleeding into the right extremity, which is probably the major factor and secondarily, possibly an ulcer resulting from nonsteroidal anti-inflammatory drugs ingestion. The patient is not actively bleeding at the current time point, her H and H is stable. She is scheduled for just an upper endoscopy tomorrow to evaluate the presence of an ulcer. The patient is agreeable. I reviewed the risks, benefits and alternatives of the procedure with the patient this morning. I will do the same tomorrow prior to her endoscopy, which is scheduled for 08:00 a.m. If the esophagogastroduodenoscopy is negative, consider colonoscopy at a later date after she is discharged. The patient is currently on her diet and will stay n.p.o. after the midnight for the procedure . Of note, the patient had a recent echo on 05/05/2018, which had significant findings. Note that the patient had left ventricular hypertrophy and normal left ventricular ejection fraction. She has mild dilatation of the right and left atrium. She has aortic valve thickening with no regurgitation. There is trace valvular aortic stenosis. She does have uxvsmiuj-lu-gtsaaf mitral regurgitation as well as severe tricuspid regurgitation. Note that there is severe pulmonary hypertension which I will review with the anesthesiologist tomorrow. Note that the echo indicated trace loculated anterior pericardial effusion. Ray Fish DO, PhD [facility]
[2018-05-06] MEDS ORDERED: Sodium Chloride 0.45% 1,000 ML IV SCH (20:00)
--- NOTE | 2018-05-06 20:48 | PN ---
Copied To: Alvina Raymundo MD Attending MD: Alvina Raymundo MD DATE: 05/06/2018 SUBJECTIVE: She is comfortable in bed, in no acute distress. Right leg in dressing. No complaints of knee pain. She had a small bowel movement today. No melena. No bright red blood per rectum. Hemoglobin is stable at 8.8. She received 2 units of blood transfusion on admission. No shortness of breath. No chest pain. REVIEW OF SYSTEMS: As per HPI. Rest of 12-point review of systems reviewed negative. PHYSICAL EXAMINATION: GENERAL: Comfortable in chair, in no acute distress. VITAL SIGNS: Temperature 98.7, heart rate 80 per minute, respiratory rate 15 per minute, blood pressure 100/70, pulse ox is 98% on room air. HEENT: Pallor positive. NECK: No lymphadenopathy. CHEST: Air entry present, equal bilaterally. No added sounds. CARDIOVASCULAR: S1, S2 normal. No murmur. No gallop. ABDOMEN: Soft, nontender. No hepatosplenomegaly. EXTREMITIES: No edema. LABORATORY DATA: Hemoglobin 8.8. Sodium 140, potassium 4.1. Creatinine 0.5. Repeat iron showed iron low at 30, saturation 11. MEDICATIONS: Protonix 40 gm IV daily, Pneumovax vaccine, K-Dur 20 mEq daily. ASSESSMENT: 1. Gastrointestinal bleed. 2. Anemia. 3. Iron deficiency. 4. Recent right knee surgery. PLAN: She was evaluated by Dr. Fish. EGD planned for tomorrow. Severe iron deficiency anemia, we will give one dose of IV iron 200 mg. She will need to continuation of IV iron as outpatient. Colonoscopy will be planned as an outpatient. No issues with the right knee. CT of abdomen and pelvis was negative. CEA was negative; CEA, not elevated. B12 level is borderline at 280. She is n.p.o. after midnight for EGD tomorrow. We will give IV fluid half normal saline at 80 mL an hour. Alvina Raymundo MD
[2018-05-07] MEDS ORDERED: Benzocaine/Butamben/Tetracai 14-2-2% TOP Spray TOP ONE ×2 (07:12→07:17)
[2018-05-07] MEDS ORDERED: Phenylephrine 10 mg/ml Inj ONE (07:37)
[2018-05-07] MEDS ORDERED: Etomidate 20 mg/10ml Inj IV ONE (07:37)
[2018-05-07] MEDS ORDERED: TETRACAINE/BENZOCAINE/BUTAMBEN 20 GM SPRAY TP ONE (07:54)
[2018-05-07] MEDS ORDERED: Midazolam 2 MG/2 ML VIAL ONE (07:57)
[2018-05-07 08:30] VITALS: O2SAT 99
[2018-05-07] MEDS ORDERED: Sodium Chloride 0.9% 1,000 ML IV SCH (08:30)
--- NOTE | 2018-05-07 08:50 | PN ---
Copied To: Mir Valle MD Attending MD: Mir Valle MD DATE: 05/07/2018 SUBJECTIVE: The patient has no complaints of any chest pain. No shortness of breath. No headaches. PHYSICAL EXAMINATION: VITAL SIGNS: Temperature is 98, pulse is 75, blood pressure is 105/52, respirations . GENERAL: The patient is lying in bed, flat, comfortable. HEENT: No oral lesion. Anicteric sclerae. Moist mucosa. NECK: No JVD, adenopathy, or thyromegaly. CARDIOVASCULAR: S1 and S2, regular. No murmurs, rubs, or gallops. LUNGS: Clear to auscultation bilaterally. No wheeze, rales, or rhonchi. ABDOMEN: Bowel sounds are positive, soft, nontender and nondistended. EXTREMITIES: No cyanosis, clubbing or edema. LABORATORY DATA: White count of 7.6, hemoglobin 8.8. Creatinine 0.7. Labs have been reviewed. ASSESSMENT: 1. Acute anemia secondary to blood loss. 2. Iron deficiency. 3. Right knee surgery. 4. Severe mitral regurgitation. 5. Pulmonary hypertension. PLAN: The patient is going for endoscopy today. She is on Colace for constipation. She is receiving potassium replacement. She is on Protonix IV. She is being followed by GI. Her hemoglobin has been stable. The patient does have pulmonary hypertension. I have asked Dr. Cardenas to evaluate the patient. The patient is n.p.o. Mir Valle MD
--- NOTE | 2018-05-07 10:14 | CP.PCM.DIS ---
<Leena Anna - Last Filed: 05/07/18 13:17> Provider - Provider Date of Admission: 05/03/18 13:33 Attending physician: Mir Valle MD Primary care physician: Kyree Loaiza MD Time Spent in preparation of Discharge (in minutes): 30 Diagnosis - Discharge Diagnosis (1) Murmur, cardiac Status: Acute (2) Anemia Status: Acute (3) GI bleeding Status: Acute (4) Leg edema, right Status: Acute Hospital Course - Lab Results Lab Results: Most Recent Lab Values WBC 12.6 10^3/ul (4.5-11.0) H 05/06/18 06:30 RBC 2.88 10^6/uL (3.5-6.1) L 05/06/18 06:30 Hgb 8.8 g/dL (12.0-16.0) L 05/06/18 06:30 Hct 26.8 % (36.0-48.0) L 05/06/18 06:30 MCV 93.1 fl (80.0-105.0) 05/06/18 06:30 MCH 30.6 pg (25.0-35.0) 05/06/18 06:30 MCHC 32.8 g/dl (31.0-37.0) 05/06/18 06:30 RDW 17.3 % (11.5-14.5) H 05/06/18 06:30 Plt Count 314 10^3/uL (120.0-450.0) 05/06/18 06:30 MPV 8.6 fl (7.0-11.0) 05/06/18 06:30 Gran % 73.9 % (50.0-68.0) H 05/03/18 12:30 Lymph % (Auto) 18.2 % (22.0-35.0) L 05/03/18 12:30 Cherry % (Auto) 7.2 % (1.0-6.0) H 05/03/18 12:30 Eos % (Auto) 0.4 % (1.5-5.0) L 05/03/18 12:30 Baso % (Auto) 0.3 % (0.0-3.0) 05/03/18 12:30 Gran # 10.29 (1.4-6.5) H 05/03/18 12:30 Lymph # (Auto) 2.5 (1.2-3.4) 05/03/18 12:30 Cherry # (Auto) 1.0 (0.1-0.6) H 05/03/18 12:30 Eos # (Auto) 0.1 (0.0-0.7) 05/03/18 12:30 Baso # (Auto) 0.04 K/mm3 (0.0-2.0) 05/03/18 12:30 PT 13.1 SECONDS (9.4-12.5) H 05/03/18 15:48 INR 1.15 05/03/18 15:48 APTT 24.9 Seconds (25.1-36.5) L 05/03/18 15:48 Sodium 139 mmol/L (132-148) 05/06/18 06:30 Potassium 4.1 mmol/L (3.6-5.0) 05/06/18 06:30 Chloride 106 mmol/L (98-107) 05/06/18 06:30 Carbon Dioxide 28 mmol/L (21-33) 05/06/18 06:30 Anion Gap 9 (10-20) L 05/06/18 06:30 BUN 19 mg/dL (7-21) 05/06/18 06:30 Creatinine 0.7 mg/dl (0.7-1.2) 05/06/18 06:30 Est GFR ( Amer) > 60 05/06/18 06:30 Est GFR (Non-Af Amer) > 60 05/06/18 06:30 POC Glucose (mg/dL) 105 mg/dL (65-110) 05/03/18 13:07 Random Glucose 92 mg/dL (70-110) 05/06/18 06:30 Calcium 8.4 mg/dL (8.4-10.5) 05/06/18 06:30 Iron 30 ug/dL (45-180) L 05/06/18 06:30 TIBC 266 ug/dL (265-497) 05/06/18 06:30 % Saturation 11 % (20-55) L 05/06/18 06:30 Ferritin 132.0 ng/mL 05/06/18 06:30 Total Bilirubin 0.9 mg/dL (0.2-1.3) 05/05/18 06:00 AST 28 U/L (14-36) 05/05/18 06:00 ALT 31 U/L (7-56) 05/05/18 06:00 Alkaline Phosphatase 44 U/L (38-126) 05/05/18 06:00 Lactate Dehydrogenase 540 U/L (333-699) 05/03/18 12:30 Total Creatine Kinase 55 U/L (35-230) 05/03/18 12:30 Troponin I 0.04 ng/mL D 05/03/18 12:30 Total Protein 5.6 g/dL (5.8-8.3) L 05/05/18 06:00 Albumin 2.8 g/dL (3.0-4.8) L 05/05/18 06:00 Globulin 2.7 gm/dL 05/05/18 06:00 Albumin/Globulin Ratio 1.0 (1.1-1.8) L 05/05/18 06:00 Carcinoembryonic Ag 1.0 ng/mL (0.0-3.0) 05/06/18 06:30 Vitamin B12 280 pg/mL (239-931) 05/06/18 06:30 Urine Color Yellow (YELLOW) 05/03/18 13:22 Urine Appearance Clear (CLEAR) 05/03/18 13:22 Urine pH 6.0 (4.7-8.0) 05/03/18 13:22 Ur Specific [place] 1.015 (1.005-1.035) 05/03/18 13:22 Urine Protein Negative mg/dL (<30 mg/dL) 05/03/18 13:22 Urine Glucose (UA) Negative mg/dL (NEGATIVE) 05/03/18 13:22 Urine Ketones Negative mg/dL (NEGATIVE) 05/03/18 13:22 Urine Blood Negative (NEGATIVE) 05/03/18 13:22 Urine Nitrate Negative (NEGATIVE) 05/03/18 13:22 Urine Bilirubin Negative (NEGATIVE) 05/03/18 13:22 Urine Urobilinogen 0.2 E.U./dL (<1 E.U./dL) 05/03/18 13:22 Ur Leukocyte Esterase Small Efren/uL (NEGATIVE) H 05/03/18 13:22 Urine RBC Negative /hpf (0-2) 05/03/18 13:22 Urine WBC 2 - 5 /hpf (0-6) 05/03/18 13:22 Ur Epithelial Cells 1 - 3 /hpf (0-5) 05/03/18 13:22 Urine Bacteria Mod (NEG) 05/03/18 13:22 Stool Occult Blood Positive (NEGATIVE) H 05/06/18 10:38 Blood Type O POSITIVE 05/03/18 12:30 Blood Type Confirm O POSITIVE 05/03/18 13:40 Antibody Screen Negative 05/03/18 12:30 Crossmatch See Detail 05/03/18 12:30 BBK History Checked No verified bt 05/03/18 12:30 - Hospital Course Hospital Course: PGY-[address] Valle Ms Phelps, 82F, with PMHx of recent knee procedure one week ago, c/o black stool x1d and "feeling very weak". Patient reports she had surgery to leg last week, and since then has been eating a little, and took Aspirin 325 for pain relief. Pt did not take the prescribed pain med for fear of the side effect. Patient awoke feeling very weak and had dark bowel movement, which she did not have previously. Patient notes also experiencing dizziness and lightheadedness that worsen when standing or ambulating. Her last colonoscopy 8 years ago, normal. 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 mychal Fish ED course: normotensive with a BP of 119/61 HR 80. Labs remarkable for HB 6.6. baseline 14. Rectal exam reveals melena and is guaiac positive. (+) ecchymosis noted to right lower extremity with edema. Pulses intact. Minimal leg discomfort. NO sign of compartment syndrome on exam. CT: Partial knee replacement on R lateral, no hematoma. She was not hypotensive or tachycardic. transfused __2_u pRBC. Dizziness and weakness resolved. Hb is stable at 8.8 at discharge. She received IV protonix and was on heart healthy diet. Anemia work up showed Severe Fe deficieny anemia s/p one dose of IV iron 200mg. Pt is recommended to follow up with Dr Raymundo outpatient for IV iron outpatient. Her CEA is negative. B12 borderline at 280 EGD was performed today (05/07) and found Esophagitis, LA classification grade A ; Hiatal hernia; Non-bleeding small gastric ulcer/erosin with no stigmata of bleeding; Large ulcer in proximal antrum x 1, large; gastritis/duodenitis, bulbar erosions. Gi doctor recommend resume current heart healthy diet of regular consistency, continue protonix, follow up with pathology result, and exercise anti-reflux precaution - Avoid large meal, sit up right during and 2 hrs after meal Echocardiogram was obtained for heart murmur. It was found that she has moderate to severe mitral regurgitation, severe pulmonary hypertension, and severe tricuspid regurgitation. Pt is recommended to follow up with her foot specialist s/r/d/w Dr Valle Discharge Exam - Head Exam Head Exam: ATRAUMATIC, NORMAL INSPECTION, NORMOCEPHALIC Discharge Plan - Discharge Medications Prescriptions: Pantoprazole Sodium [Protonix] 40 mg PO DAILY #30 tablet.dr - Follow Up Plan Condition: SERIOUS Disposition: HOME/ ROUTINE Instructions: Pulmonary Hypertension in Adults, Gastrointestinal Bleeding, Dependent Edema (DC), Upper GI Endoscopy (DC), Normocytic Normochromic Anemia Additional Instructions: You have been discharged from [facility]. Please f/u with Dr Loaiza in 1 week. Please F/u with Dr Fish in 1 week. follow up with Dr Breanne doran for IV iron outpatient follow up with [facility] for muti-valve regurgitation and pulmonary hypertension Referrals: Kyree Loaiza MD [Primary Care Provider] - 1 Week Cedric Cardenas MD [Staff Provider] - 1 Week Alvina Raymundo MD [Staff Provider] - 1 Week Ray Fish DO [Staff Provider] - 1 Week <Mir Valle - Last Filed: 05/07/18 21:16> Provider - Provider Date of Admission: 05/03/18 13:33 Attending physician: Mir Valle MD Primary care physician: Kyree Loaiza MD Hospital Course - Lab Results Lab Results: Most Recent Lab Values WBC 12.6 10^3/ul (4.5-11.0) H 05/06/18 06:30 RBC 2.88 10^6/uL (3.5-6.1) L 05/06/18 06:30 Hgb 8.8 g/dL (12.0-16.0) L 05/06/18 06:30 Hct 26.8 % (36.0-48.0) L 05/06/18 06:30 MCV 93.1 fl (80.0-105.0) 05/06/18 06:30 MCH 30.6 pg (25.0-35.0) 05/06/18 06:30 MCHC 32.8 g/dl (31.0-37.0) 05/06/18 06:30 RDW 17.3 % (11.5-14.5) H 05/06/18 06:30 Plt Count 314 10^3/uL (120.0-450.0) 05/06/18 06:30 MPV 8.6 fl (7.0-11.0) 05/06/18 06:30 Gran % 73.9 % (50.0-68.0) H 05/03/18 12:30 Lymph % (Auto) 18.2 % (22.0-35.0) L 05/03/18 12:30 Cherry % (Auto) 7.2 % (1.0-6.0) H 05/03/18 12:30 Eos % (Auto) 0.4 % (1.5-5.0) L 05/03/18 12:30 Baso % (Auto) 0.3 % (0.0-3.0) 05/03/18 12:30 Gran # 10.29 (1.4-6.5) H 05/03/18 12:30 Lymph # (Auto) 2.5 (1.2-3.4) 05/03/18 12:30 Cherry # (Auto) 1.0 (0.1-0.6) H 05/03/18 12:30 Eos # (Auto) 0.1 (0.0-0.7) 05/03/18 12:30 Baso # (Auto) 0.04 K/mm3 (0.0-2.0) 05/03/18 12:30 PT 13.1 SECONDS (9.4-12.5) H 05/03/18 15:48 INR 1.15 05/03/18 15:48 APTT 24.9 Seconds (25.1-36.5) L 05/03/18 15:48 Sodium 139 mmol/L (132-148) 05/06/18 06:30 Potassium 4.1 mmol/L (3.6-5.0) 05/06/18 06:30 Chloride 106 mmol/L (98-107) 05/06/18 06:30 Carbon Dioxide 28 mmol/L (21-33) 05/06/18 06:30 Anion Gap 9 (10-20) L 05/06/18 06:30 BUN 19 mg/dL (7-21) 05/06/18 06:30 Creatinine 0.7 mg/dl (0.7-1.2) 05/06/18 06:30 Est GFR ( Amer) > 60 05/06/18 06:30 Est GFR (Non-Af Amer) > 60 05/06/18 06:30 POC Glucose (mg/dL) 105 mg/dL (65-110) 05/03/18 13:07 Random Glucose 92 mg/dL (70-110) 05/06/18 06:30 Calcium 8.4 mg/dL (8.4-10.5) 05/06/18 06:30 Iron 30 ug/dL (45-180) L 05/06/18 06:30 TIBC 266 ug/dL (265-497) 05/06/18 06:30 % Saturation 11 % (20-55) L 05/06/18 06:30 Ferritin 132.0 ng/mL 05/06/18 06:30 Total Bilirubin 0.9 mg/dL (0.2-1.3) 05/05/18 06:00 AST 28 U/L (14-36) 05/05/18 06:00 ALT 31 U/L (7-56) 05/05/18 06:00 Alkaline Phosphatase 44 U/L (38-126) 05/05/18 06:00 Lactate Dehydrogenase 540 U/L (333-699) 05/03/18 12:30 Total Creatine Kinase 55 U/L (35-230) 05/03/18 12:30 Troponin I 0.04 ng/mL D 05/03/18 12:30 Total Protein 5.6 g/dL (5.8-8.3) L 05/05/18 06:00 Albumin 2.8 g/dL (3.0-4.8) L 05/05/18 06:00 Globulin 2.7 gm/dL 05/05/18 06:00 Albumin/Globulin Ratio 1.0 (1.1-1.8) L 05/05/18 06:00 Carcinoembryonic Ag 1.0 ng/mL (0.0-3.0) 05/06/18 06:30 Vitamin B12 280 pg/mL (239-931) 05/06/18 06:30 Urine Color Yellow (YELLOW) 05/03/18 13:22 Urine Appearance Clear (CLEAR) 05/03/18 13:22 Urine pH 6.0 (4.7-8.0) 05/03/18 13:22 Ur Specific [place] 1.015 (1.005-1.035) 05/03/18 13:22 Urine Protein Negative mg/dL (<30 mg/dL) 05/03/18 13:22 Urine Glucose (UA) Negative mg/dL (NEGATIVE) 05/03/18 13:22 Urine Ketones Negative mg/dL (NEGATIVE) 05/03/18 13:22 Urine Blood Negative (NEGATIVE) 05/03/18 13:22 Urine Nitrate Negative (NEGATIVE) 05/03/18 13:22 Urine Bilirubin Negative (NEGATIVE) 05/03/18 13:22 Urine Urobilinogen 0.2 E.U./dL (<1 E.U./dL) 05/03/18 13:22 Ur Leukocyte Esterase Small Efren/uL (NEGATIVE) H 05/03/18 13:22 Urine RBC Negative /hpf (0-2) 05/03/18 13:22 Urine WBC 2 - 5 /hpf (0-6) 05/03/18 13:22 Ur Epithelial Cells 1 - 3 /hpf (0-5) 05/03/18 13:22 Urine Bacteria Mod (NEG) 05/03/18 13:22 Stool Occult Blood Positive (NEGATIVE) H 05/06/18 10:38 Blood Type O POSITIVE 05/03/18 12:30 Blood Type Confirm O POSITIVE 05/03/18 13:40 Antibody Screen Negative 05/03/18 12:30 Crossmatch See Detail 05/03/18 12:30 BBK History Checked No verified bt 05/03/18 12:30 - Hospital Course Hospital Course: Pt seen and examined. I have reviewed the note of the medical corps officer and agree with it. I have discussed the assessment and plan with the resident. I have reviewed the patient's labs and medications. Pt interested in going to TCU. Spoke to counseling case manager.
[2018-05-07 12:35] VITALS: BP 114/57; PULSE 70; RESP 20; TEMP 98
[2018-05-07] MEDS: Multivitamin Therapeutic Tab PO SCH (13:34)
--- NOTE | 2018-05-07 16:51 | PN ---
Copied To: Ray Fish DO Attending MD: Ray Fish DO DATE: 05/07/2018 SUBJECTIVE: I saw Mrs. Phelps this morning. She is an 82-year-old white female known to the consultants with past medical history of nonspecific colitis and admitted after an orthopedic procedure, which was associated with subsequent bleeding into the right lower extremity. Also, the patient noted some passage of melanotic stools two days prior to admission. The patient also has history of meningioma and more recently her echo, which was performed several days prior indicated aortic valve thickening, valvular aortic stenosis, MR, TR and pulmonary hypertension. At bedside this morning, the patient indicates no pain, no bleeding, no hematemesis. No nausea and vomiting and she tolerated diet fairly well. She still has discomfort in the right lower extremity, for which she has been receiving physical therapy. It is still ecchymotic. PHYSICAL EXAMINATION: VITAL SIGNS: I reviewed this patient's vital signs. HEENT: Noncontributory. LUNGS: Decreased breath sounds, basilar. Seem to small amount of crackles on the left base. HEART: Irregular rhythm. ABDOMEN: Soft, no tenderness elicited in any quadrant. EXTREMITIES: Right leg still swollen from the knee to the dorsal aspect of the right foot. Still has significant ecchymoses, although significantly less than on the day of admission. 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 LABORATORY DATA: Patient's laboratory data indicates stable H and H with value 8.8 over 26. Platelet count of 314. White count is in the range of 12,000. 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 This is usually self limited and occurs over 2-to 3-week period and resolves with oral steroid taper. That is not the main issue regarding this admission. Note that, the patient's right leg has improved relatively from day of admission. Swelling is down, ecchymoses are down, still with difficulty walking. There has not been any bleeding since the day of admission and the patient is scheduled for an upper endoscopy later on this morning at 08:00 a.m. Reviewed the risks, benefits, and alternatives of the procedure including risk of hemorrhage, perforation of surgery, alternatives of the procedure with the patient. She understood the discussion and will sign a consent later on this morning in PACU when she comes down from upstairs. If the endoscopy is just significant for an ulcer and there is no active bleeding, might consider possible discharge today because the patient really wants to go home. She wishes to follow up with Physical Therapy on the outpatient side as well as Dr. Loaiza. Again, further input after the upper endoscopy procedure today. She has been n.p.o. after midnight. I reviewed these issues with the nurse on the floor this morning. Ray Fish DO, PhD [email or web address]
== END 2018-05-07 14:37 | disposition home or self-care (01) | DRG 378 ==
LOC: ED 12:11 → ERH 13:33 → 2RNO 17:13
PROVIDERS: ADMIT Internal Medicine Nephrology; ATTEND Internal Medicine Nephrology
PROC: 30233N1 Transfusion of Nonautologous Red Blood Cells into Peripheral Vein, Percutaneous Approach (ICD-10-PCS; 2018-05-03)
PROC: 0DB68ZX Excision of Stomach, Via Natural or Artificial Opening Endoscopic, Diagnostic (ICD-10-PCS; principal; 2018-05-07 08:00)
DX: K92.1 Melena (principal); D62 Acute posthemorrhagic anemia; K25.9 Gastric ulcer, unspecified as acute or chronic, without hemorrhage or perforation; K26.9 Duodenal ulcer, unspecified as acute or chronic, without hemorrhage or perforation; K20.9 Esophagitis, unspecified; K44.9 Diaphragmatic hernia without obstruction or gangrene; E61.1 Iron deficiency; I08.1 Rheumatic disorders of both mitral and tricuspid valves; I27.20 Pulmonary hypertension, unspecified; I08.3 Combined rheumatic disorders of mitral, aortic and tricuspid valves; K52.9 Noninfective gastroenteritis and colitis, unspecified; K29.80 Duodenitis without bleeding; S80.11XA Contusion of right lower leg, initial encounter; K29.50 Unspecified chronic gastritis without bleeding; Z79.82 Long term (current) use of aspirin; Z85.828 Personal history of other malignant neoplasm of skin; Z86.011 Personal history of benign neoplasm of the brain; Z87.891 Personal history of nicotine dependence; Z96.651 Presence of right artificial knee joint; Z88.8 Allergy status to other drugs, medicaments and biological substances; Z91.013 Allergy to seafood

== ENCOUNTER 2018-07-16 08:07 | Day surgery (SDC) | payer MEDICARE ==
[2018-07-16] MEDS ORDERED: Midazolam 2 MG/2 ML VIAL ONE (09:41)
[2018-07-16] MEDS ORDERED: Etomidate 20 mg/10ml Inj IV ONE (09:41)
[2018-07-16] MEDS ORDERED: Sodium Chloride 0.9% 1,000 ML IV SCH (10:30)
[2018-07-16 10:54] VITALS: PULSE 65
[2018-07-16 11:06] VITALS: BP 149/66; RESP 20; TEMP 98.7; O2SAT 98
== END 2018-07-16 11:49 | disposition home or self-care (01) ==
LOC: ENDO 08:07
PROVIDERS: ATTEND Internal Medicine Gastroenterology
DX: K25.9 Gastric ulcer, unspecified as acute or chronic, without hemorrhage or perforation (principal); K20.9 Esophagitis, unspecified; K44.9 Diaphragmatic hernia without obstruction or gangrene; K29.70 Gastritis, unspecified, without bleeding; D50.9 Iron deficiency anemia, unspecified
CPT/HCPCS: 43239; 88305; 88342; J2001; J2250; J7030; J7040